=== PATIENT | female | born 2000 | race Caucasian/White ===

== ENCOUNTER 2024-07-09 14:51 | Emergency (ER) | payer BC, OTHER ==
[2024-07-09] MEDS ORDERED: Cyclobenzaprine 10 MG TAB ONE (16:23)
[2024-07-09] MEDS ORDERED: Naproxen 500 MG TAB ONE (16:24)
[2024-07-09] MEDS ORDERED: Ondansetron ODT 4 MG TAB ONE (16:24)
[2024-07-09] MEDS ORDERED: Lidocaine 4% Patch ONE (17:03)
== END 2024-07-09 17:27 | disposition home or self-care (01) ==
LOC: CSHERS 14:51
DX: S06.0X0A Concussion without loss of consciousness, initial encounter (principal); S00.83XA Contusion of other part of head, initial encounter; V89.2XXA Person injured in unspecified motor-vehicle accident, traffic, initial encounter
CPT/HCPCS: 99283; Q0162